=== PATIENT | male | born 1970 | race Caucasian/White ===

== ENCOUNTER 2017-04-01 21:29 | Emergency (ER) | payer OTHER ==
[2017-04-01 21:35] VITALS: TEMP 99.5; BMI 32.3
--- NOTE | 2017-04-01 21:50 | PDOC ---
Rapid Medical Evaluation Chief Complaint: Headache Time Seen by Provider: 04/01/17 21:35 Medical Evaluation: Allergies Allergy/AdvReac Type Severity Reaction Status Date / Time No Known Allergies Allergy Verified 04/01/17 21:32 Vital Signs Temp Pulse Resp BP Pulse Ox 99.5 F 102 H 18 135/82 97 04/01/17 21:33 04/01/17 21:33 04/01/17 21:33 04/01/17 21:33 04/01/17 21:33 04/02/17 02:56 Chart opened in error Discharge Disposition - Diagnosis Viral URI, Cluster headache - Discharge Dispostion Disposition: HOME Condition at time of disposition: Stable - Referrals - Patient Instructions Printed Discharge Instructions: Learn Your Diabetic ABCs, Common Cold, DI for Cluster Headache - Post Discharge Activity
--- NOTE | 2017-04-02 01:47 | PDOC ---
History of Present Illness - General History Source: Patient Exam Limitations: No Limitations - History of Present Illness Initial Comments: 04/02/17 02:04 The patient is a 46 year old male, with a significant past medical history of diabetes mellitus and blind in his left eye, who presents to the emergency department with, three days of a headache, cough, and body pains. The patient reports his headache to be a possible cluster headache located from the top of his head radiating to his left eye. Secondary to his symptoms, he reports a subjective fever. He reports taking 4 Tylenol per day for his symptoms. 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 The patient is not up to date with her flu shot. He denies any recent dizziness. He denies any recent nausea, vomit, diarrhea or constipation. He denies any recent chest pain or shortness of breath. He denies any recent dysuria, frequency, urgency or hematuria. Allergies: NKA Past surgical history: None reported. Social History: Nonsmoker. Denies EtOH use and recreational drug use. <Devon Robles - Last Filed: 04/02/17 02:10> <Lillian Isaac - Last Filed: 04/02/17 20:22> - General Chief Complaint: Headache Stated Complaint: HEADACHE Time Seen by Provider: 04/01/17 21:35 Past History <Devon Robles - Last Filed: 04/02/17 02:10> - Past Medical History COPD: No Diabetes: Yes - Suicide/Smoking/Psychosocial Hx Smoking History: Never smoked Have you smoked in the past 12 months: No Hx Alcohol Use: No Drug/Substance Use Hx: No <Lillian Isaac - Last Filed: 04/02/17 20:22> - Past Medical History Allergies/Adverse Reactions: Allergies Allergy/AdvReac Type Severity Reaction Status Date / Time No Known Allergies Allergy Verified 04/01/17 21:32 Home Medications: Ambulatory Orders Glyburide/Metformin HCl [Glucovance 2.5-500 mg Tablet] 1 each PO DAILY 04/02/17 Naproxen [Naprosyn -] 500 mg PO BID #14 tablet 04/02/17 Review of Systems - Review of Systems Able to Perform ROS?: Yes Comments:: 04/02/17 02:07 GENERAL/CONSTITUTIONAL: +Subjective fever. No chills. No weakness. HEAD, EYES, EARS, NOSE AND THROAT: No change in vision. No ear pain or discharge. No sore throat. CARDIOVASCULAR: No chest pain or shortness of breath. RESPIRATORY: +Cough (resolved). No wheezing, or hemoptysis. GASTROINTESTINAL: No nausea, vomiting, diarrhea or constipation. GENITOURINARY: No dysuria, frequency, or change in urination. MUSCULOSKELETAL: +Body pains. No joint swelling or pain. No neck or back pain. SKIN: No rash NEUROLOGIC: +Headache. No vertigo, loss of consciousness, or change in strength/ sensation. ENDOCRINE: No increased thirst. No abnormal weight change. HEMATOLOGIC/LYMPHATIC: No anemia, easy bleeding, or history of blood clots. ALLERGIC/IMMUNOLOGIC: No hives or skin allergy. <Devon Robles - Last Filed: 04/02/17 02:10> *Physical Exam - Vital Signs Last Vital Signs Temp Pulse Resp BP Pulse Ox 99.5 F 102 H 18 135/82 97 04/01/17 21:33 04/01/17 21:33 04/01/17 21:33 04/01/17 21:33 04/01/17 21:33 - Physical Exam Comments: 04/02/17 02:10 GENERAL: Awake, alert, and fully oriented, in no acute distress HEAD: No signs of trauma EYES: +Blind in left eye.+ Left eye irregular pupil and iris. Sclera anicteric, conjunctiva clear ENT: Auricles normal inspection, hearing grossly normal, nares patent, oropharynx clear without exudates. Moist mucosa NECK: Normal ROM, supple, no lymphadenopathy, JVD, or masses LUNGS: Breath sounds equal, clear to auscultation bilaterally. No wheezes, and no crackles HEART: Regular rate and rhythm, normal S1 and S2, no murmurs, rubs or gallops ABDOMEN: Soft, nontender, normoactive bowel sounds. No guarding, no rebound. No masses EXTREMITIES: Normal range of motion, no edema. No clubbing or cyanosis. No cords, erythema, or tenderness NEUROLOGICAL: Cranial nerves II through XII grossly intact. Normal speech, normal gait SKIN: Warm, Dry, normal turgor, no rashes or lesions noted. <Devon Robles - Last Filed: 04/02/17 02:10> - Vital Signs Last Vital Signs Temp Pulse Resp BP Pulse Ox 99.5 F 102 H 18 135/82 97 04/01/17 21:33 04/01/17 21:33 04/01/17 21:33 04/01/17 21:33 04/01/17 21:33 <Lillian Isaac - Last Filed: 04/02/17 20:22> ED Treatment Course - ADDITIONAL ORDERS Additional order review: 04/01/17 22:15 Influenza Types A,B Antigen (LEIGHANN) - Final Nasopharyngeal Swab - Final - Medications Given in the ED: ED Medications Discontinued Medications Generic Name Dose Route Start Last Admin Trade Name Freq PRN Reason Stop Dose Admin Oxycodone/Acetaminophen 2 combo 04/02/17 00:33 04/02/17 01:18 Percocet 5/325 - PO 04/02/17 00:34 2 combo ONCE ONE Administration <Devon Robles - Last Filed: 04/02/17 02:10> - ADDITIONAL ORDERS Additional order review: 04/01/17 22:15 Influenza Types A,B Antigen (LEIGHANN) - Final Nasopharyngeal Swab - Final - Medications Given in the ED: ED Medications Discontinued Medications Generic Name Dose Route Start Last Admin Trade Name Freq PRN Reason Stop Dose Admin Oxycodone/Acetaminophen 2 combo 04/02/17 00:33 04/02/17 01:18 Percocet 5/325 - PO 04/02/17 00:34 2 combo ONCE ONE Administration <Lillian Isaac - Last Filed: 04/02/17 20:22> Medical Decision Making - Medical Decision Making 04/02/17 20:19 Pt comes with a headache that affects the top of his head and his left eye area. Exam is completely normal. Neuro exam normal. Pt has no need for CT head at this time, given his presentation. Pt treated with a cocktail of meds. He slept and was discharged once he was feeling better. Diagnosis: cluster headache. <Lillian Isaac - Last Filed: 04/02/17 20:22> *DC/Admit/Observation/Transfer - Attestations Scribe Attestion: 04/02/17 02:07 Documentation prepared by Devon Robles, acting as medical educator for Lillian Isaac MD. <Devon Robles - Last Filed: 04/02/17 02:10> - Discharge Dispostion Admit: No <Lillian Isaac - Last Filed: 04/02/17 20:22> Diagnosis at time of Disposition: Viral URI, Cluster headache - Discharge Dispostion Disposition: HOME Condition at time of disposition: Stable - Prescriptions Prescriptions: Naproxen [Naprosyn -] 500 mg PO BID #14 tablet - Patient Instructions Printed Discharge Instructions: Learn Your Diabetic ABCs, Common Cold, DI for Cluster Headache
[2017-04-02 02:19] VITALS: BP 126/78; PULSE 89
== END 2017-04-02 02:19 | disposition home or self-care (01) ==
LOC: JER 21:29
DX: J06.9 Acute upper respiratory infection, unspecified (principal); G44.009 Cluster headache syndrome, unspecified, not intractable; H54.40 Blindness, one eye, unspecified eye
CPT/HCPCS: 82962; 87804; 99282-25

== ENCOUNTER 2024-05-30 17:22 | Observation (INO) | payer OTHER ==
[2024-05-30] MEDS ORDERED: ACETAMINOPHEN INJECTION 100 ML ONE (18:38)
[2024-05-30 18:44] LABS: BASO % 1.1 % (0-2.0); EOS % 0.5 % (0-4.5); HEMATOCRIT 40.3 % (35.4-49); HEMOGLOBIN 13.7 GM/dL (11.7-16.9); LYMPH % 29.2 % (8-40); MCH 33.7 pg (25.7-33.7); MEAN PLT VOLUME 8.5 fl (7.5-11.1); MONO % 6.7 % (3.8-10.2); NEUT % 62.5 % (42.8-82.8); PLATELET COUNT 206 10^3/uL (134-434); RBC 4.07 M/mm3 (4.00-5.60); RDW 13.4 % (11.9-15.9); WHITE BLOOD COUNT 6.8 K/mm3 (4.0-10.0)
[2024-05-30 18:50] LABS: INR 1.13 (0.83-1.09); PROTHROMBIN TIME (PATIENT) 12.3 SEC (9.7-13.0)
[2024-05-30 18:53] LABS: ACTIVATED PTT 29.7 SECONDS (25.2-36.5)
[2024-05-30] MEDS: ACETAMINOPHEN 1000 MG/100 ML BAG IVPB ONE (18:54)
[2024-05-30 19:07] LABS: EPI CELLS 4 /uL (0-25.1); HYALINE CASTS 0 /uL (0-3.1); PH,URINE 6.5 (5.0-8.0); URINE APPEARANCE CLEAR; URINE BACTERIA 1209 /uL (0-1359); URINE BILIRUBIN NEGATIVE (NEGATIVE); URINE COLOR YELLOW; URINE GLUCOSE (UA) 3+ (NEGATIVE); URINE KETONE TRACE (NEGATIVE); URINE LEUK ESTERASE 1+ (NEGATIVE); URINE NITRITE NEGATIVE (NEGATIVE); URINE PROTEIN NEGATIVE (NEGATIVE); URINE RBC 190 /uL (0-23.9); URINE UROBILINOGEN 0.2 mg/dL (0.2-1.0); URINE WBC 259 /uL (0-25.8)
[2024-05-30 19:11] LABS: CHLORIDE 91 mmol/L (98-107); POTASSIUM 3.3 mmol/L (3.5-5.1); SODIUM 130 mmol/L (136-145)
[2024-05-30 19:14] LABS: CALCIUM 9.1 mg/dL (8.5-10.1)
[2024-05-30 19:15] LABS: ALBUMIN 3.5 g/dl (3.4-5.0); ANION GAP 9 mmol/L (4-13); BLOOD UREA NITROGEN 6.3 mg/dL (7-18); CO2 30 mmol/L (21-32)
[2024-05-30 19:18] LABS: CREATININE 0.7 mg/dL (0.55-1.3); SGOT/AST 40 U/L (15-37); SGPT/ALT 54 U/L (13-61)
[2024-05-30 19:19] LABS: BILIRUBIN,TOTAL 0.6 mg/dL (0.2-1)
[2024-05-30 19:20] LABS: TOT PROT 8.3 g/dl (6.4-8.2)
[2024-05-30 19:21] LABS: ALK PHOS 100 U/L (45-117)
[2024-05-30 19:23] LABS: GLUCOSE,RANDOM 542 mg/dL (74-106)
[2024-05-30] MEDS ORDERED: CEFTRIAXONE 1 G/50 ML PREMIX 50 ML IVPB ONE (19:49)
[2024-05-30] MEDS: SODIUM CHLORIDE 0.9% 500 ML INFUS.BAG IV ONE (20:04)
[2024-05-30] MEDS ORDERED: ASPIRIN 325 MG TABLET ONE (22:18)
[2024-05-30] MEDS: SODIUM CHLORIDE 1,000 ML IV STA (22:24)
[2024-05-30] MEDS: ASPIRIN 325 MG TABLET PO ONE (22:24)
[2024-05-30] MEDS: INSULIN REGULAR HUMAN 100 UNITS/ML *VIAL IVPUSH ONE (22:24)
[2024-05-31] MEDS: POTASSIUM CHLORIDE TABS 20 MEQ TABLET.ER (FP) PO ONE (02:23)
[2024-05-31] MEDS: SODIUM CHLORIDE 1,000 ML with POTASSIUM CHLORIDE 40 MEQ IV SCH (03:56)
[2024-05-31] MEDS: INSULIN (LEVEMIR) 100 UNITS/ML UNITS SQ ONE (04:48)
[2024-05-31] MEDS: INSULIN ASPART SLIDING SCALE (NOVOLOG) 1 VIAL SQ SCH (06:11)
[2024-05-31] MEDS: ACETAMINOPHEN 325 MG TABLET (FP) PO PRN (06:12)
[2024-05-31] MEDS ORDERED: FLU VACCINE (FLULAVAL) PF 45 MCG/0.5 ML SYRINGE 2024-2025 IM ONE (06:31)
[2024-05-31] MEDS ORDERED: INSULIN ASPART SLIDING SCALE (NOVOLOG) 1 VIAL SQ SCH (07:00)
[2024-05-31 07:56] LABS: HEMATOCRIT 37.5 % (35.4-49); MCHC 34.5 g/dl (32.0-35.9); MEAN CELL VOLUME 98.5 fl (80-96); PLATELET COUNT 193 10^3/uL (134-434); RBC 3.81 M/mm3 (4.00-5.60); RDW 12.8 % (11.9-15.9)
[2024-05-31 08:10] LABS: POTASSIUM 3.6 mmol/L (3.5-5.1)
[2024-05-31 08:21] LABS: ALBUMIN 2.8 g/dl (3.4-5.0); BLOOD UREA NITROGEN 3.7 mg/dL (7-18); CALCIUM 7.9 mg/dL (8.5-10.1); MAGNESIUM 1.6 mg/dL (1.8-2.4)
[2024-05-31 08:24] LABS: CREATININE 0.4 mg/dL (0.55-1.3)
[2024-05-31 08:25] LABS: BILIRUBIN,TOTAL 0.7 mg/dL (0.2-1); TOT PROT 6.9 g/dl (6.4-8.2)
[2024-05-31 08:32] LABS: PHOSPHOROUS 2.4 mg/dL (2.5-4.9)
[2024-05-31] MEDS ORDERED: INSULIN (LEVEMIR) 100 UNITS/ML UNITS SQ SCH (10:00)
[2024-05-31] MEDS: MAGNESIUM 2GM/50ML STERILE WATER IVPB IVPB SCH (10:17)
[2024-05-31] MEDS: ENOXAPARIN NA (PORCINE) 40 MG/0.4 ML DISP.SYRIN SQ SCH (10:17)
[2024-05-31] MEDS: ASPIRIN 81 MG CHEWABLE TABLETS PO SCH (10:18)
[2024-05-31] MEDS: INSULIN (LEVEMIR) 100 UNITS/ML UNITS SQ SCH (10:18)
[2024-05-31] MEDS: FLU VACCINE (FLUARIX) PF 45 MCG/0.5 ML SYRINGE 2024-2025 IM ONE (11:43)
[2024-05-31] MEDS: SODIUM PHOSPHATE - 30 MM in SODIUM CHLORIDE 500 ML IVPB ONE (12:05)
[2024-05-31 12:45] LABS: HIV INTERPRETATION NEGATIVE (NEGATIVE)
[2024-05-31] MEDS: CEFTRIAXONE 1 G/50 ML PREMIX 50 ML IVPB SCH (13:11)
[2024-05-31] MEDS: MAGNESIUM SULFATE IN WATER 2 GM/50 ML IVPB IVPB ONE (16:33)
[2024-05-31] MEDS: ACYCLOVIR INJECTION 600 MG in DEXTROSE 5%-WATER - 100 ML IVPB SCH (20:05)
[2024-05-31] MEDS: SODIUM CHLORIDE 1,000 ML IV SCH (20:15)
[2024-05-31] MEDS: VANCOMYCIN/WATER FOR INJ (PEG) 1,000 MG/200 ML BAG IVPB SCH (20:44)
[2024-06-01] MEDS: CEFTRIAXONE 2 GM-D5W BAG 2 GM/50 ML BAG IVPB SCH (02:45)
[2024-06-01] MEDS: ACETAMINOPHEN/CAFFEINE/BUTALBITAL 1 TAB PO PRN (03:10)
[2024-06-01] MEDS: ACETAMINOPHEN 325 MG TABLET (FP) PO PRN (06:36)
[2024-06-01 07:57] LABS: BASO % 0.6 % (0-2.0); EOS % 0.5 % (0-4.5); HEMATOCRIT 35.6 % (35.4-49); HEMOGLOBIN 12.7 GM/dL (11.7-16.9); LYMPH % 35.9 % (8-40); MCH 34.4 pg (25.7-33.7); MCHC 35.6 g/dl (32.0-35.9); MEAN CELL VOLUME 96.4 fl (80-96); MEAN PLT VOLUME 7.9 fl (7.5-11.1); MONO % 8.1 % (3.8-10.2); NEUT % 54.9 % (42.8-82.8); PLATELET COUNT 179 10^3/uL (134-434); RBC 3.69 M/mm3 (4.00-5.60); WHITE BLOOD COUNT 5.7 K/mm3 (4.0-10.0)
[2024-06-01 08:19] LABS: POTASSIUM 3.4 mmol/L (3.5-5.1)
[2024-06-01] MEDS: VANCOMYCIN 1,000 MG in DEXTROSE 5%-WATER - 250 ML IVPB SCH (08:25)
[2024-06-01 08:29] LABS: MAGNESIUM 2.1 mg/dL (1.8-2.4)
[2024-06-01 08:32] LABS: CREATININE 0.4 mg/dL (0.55-1.3)
[2024-06-01] MEDS: POTASSIUM CHLORIDE ORAL LIQUID 20 MEQ/15 ML PO ONE ×2 (09:26→10:49)
[2024-06-01] MEDS: TOPIRAMATE 25 MG TABLET PO SCH (14:46)
[2024-06-01] MEDS: oxyCODONE HCL 5 MG TABLET PO PRN (19:16)
[2024-06-01 22:26] VITALS: BMI 21.9
[2024-06-01 23:24] VITALS: BP 121/90; PULSE 73; RESP 20; TEMP 98.2
== END 2024-06-02 01:03 | disposition short-term general hospital (02) ==
LOC: JER 17:22 → JERBED 21:32 → J4W 05-31 02:04
PROVIDERS: ADMIT Internal Medicine; ATTEND Internal Medicine
PROC: 3E033NZ Introduction of Analgesics, Hypnotics, Sedatives into Peripheral Vein, Percutaneous Approach (ICD-10-PCS; principal; 2024-05-30)
PROC: 3E03329 Introduction of Other Anti-infective into Peripheral Vein, Percutaneous Approach (ICD-10-PCS; 2024-05-30)
PROC: 3E023GC Introduction of Other Therapeutic Substance into Muscle, Percutaneous Approach (ICD-10-PCS; 2024-05-30)
PROC: 3E023GC Introduction of Other Therapeutic Substance into Muscle, Percutaneous Approach (ICD-10-PCS; 2024-05-30)
PROC: 3E033VG Introduction of Insulin into Peripheral Vein, Percutaneous Approach (ICD-10-PCS; 2024-05-30)
PROC: 3E0337Z Introduction of Electrolytic and Water Balance Substance into Peripheral Vein, Percutaneous Approach (ICD-10-PCS; 2024-05-30)
DX: D31.62 Benign neoplasm of unspecified site of left orbit (principal); H02.402 Unspecified ptosis of left eyelid; G43.909 Migraine, unspecified, not intractable, without status migrainosus; N39.0 Urinary tract infection, site not specified; E11.65 Type 2 diabetes mellitus with hyperglycemia; R30.0 Dysuria; H54.40 Blindness, one eye, unspecified eye
CPT/HCPCS: 0241U-QW; 36415; 70450-TC; 70482-TC; 70496-TC; 70498-TC; 80048; 80053; 81003; 82962; 83036; 83735; 84100; 84439; 84443; 85025; 85027; 85610; 85730; 86140; 86618; 87086; 87389; 90656; 93005; 93010; 99285-25; G0378; J0131; Q9967